=== PATIENT | female | born 1960 | race Caucasian/White ===

== ENCOUNTER 2016-09-05 10:09 | Day surgery (SDC) | payer MEDICARE ==
[~2016-09-05] VITALS: Ht 165.1 cm; Wt 61.3 kg
[~2016-09-05 10:09] MED LIST: AMIT100 PO; B COTAB3 PO; DILA2TAB2 PO; GABA800T PO; LORA-474 PO; MORP30 PO; OXYC10TA8 PO
[2016-09-05 10:36] VITALS: BP 92/73; PULSE 106; RESP 20; TEMP 98; O2SAT 94
[2016-09-05] MEDS ORDERED: MORP1TAB25 PO (10:41)
[2016-09-05] MEDS ORDERED: OXYC-395 PO (10:41)
[2016-09-05] MEDS ORDERED: AMIT1TAB79 PO (10:41)
[2016-09-05] MEDS ORDERED: LORA-474 PO (10:41)
[2016-09-05] MEDS ORDERED: GABA800T PO (10:41)
[2016-09-05] MEDS ORDERED: VITACAP7 PO (10:41)
[2016-09-05] MEDS ORDERED: DILA2TAB2 PO (10:41)
[2016-09-05] MEDS ORDERED: SODIUM CHLORIDE 0.9% 1000 ML IV SCH (11:15)
[2016-09-05] MEDS ORDERED: VANCOMYCIN 1000 MG/NS 250 ML - implanted port/tunneled catheter IV SCH ×2 (11:15)
[2016-09-05] MEDS ORDERED: ceFAZolin 2 GM PREMIX 50 ML - implanted port/tunneled catheter insertion IV SCH (11:15)
[2016-09-05 11:24] LABS: APTT (PATIENT) 29.4 SEC (24.3-30.1); PROTHROMBIN TIME - PATIENT 10.8 SEC (9.8-11.6)
[2016-09-05] MEDS ORDERED: MIDAZOLAM HCL 5 MG/5 ML VIAL ONE (12:22)
[2016-09-05] MEDS ORDERED: fentaNYL CITRATE 250 MCG/5 ML AMP ONE (12:22)
[2016-09-05] MEDS ORDERED: LIDOCAINE 1%/EPINEPHrine 1:100,000 SOLN 20 ML VIAL ONE (12:39)
[2016-09-05 13:40] VITALS: BP 98/52; PULSE 68; RESP 16; TEMP 98; O2SAT 98
[2016-09-05] MEDS ORDERED: IOHEXOL 350 MG/ML 50 ML BTL (for RAD DIAG) IV ONE (13:44)
[2016-09-05 13:55] VITALS: BP 104/58; PULSE 53; RESP 18; O2SAT 94
--- NOTE | 2016-09-05 14:10 | PD.RAD ---
Post Procedure Progress Note Pre Procedure Diagnosis: (1) Breast CA Post Procedure Diagnosis: (1) Breast CA Procedure Date: Sep 05, 2016 Supervising Radiologist: Christiano Chin Proceduralist/Assist: RT Catrachita(R)() Anesthesia: Local, Conscious Sedation Plan of Activity Patient to Unit: [facility] Patient Condition: Good See PACS Report for procedural detail/treatment Central Venous Access Device Procedure 1 Right Internal Jugular Infusaport Removal Christiano Chin MD Sep 05, 2016 14:10
[2016-09-05 14:15] VITALS: BP 106/74; PULSE 98; RESP 18; O2SAT 95
[2016-09-05 14:25] VITALS: BP 108/74; PULSE 53; PULSE 94; RESP 18; O2SAT 95
--- NOTE | 2016-09-05 16:12 | RADRPT ---
EXAM DATE/TIME: 09/05/2016 00:00 [facility] COMPARISON: No previous studies available for comparison. INDICATIONS : <<Patient with history of metastatic breast cancer in need of evaluation of right port with removal f or suspected infection MEDICAL HISTORY : <<1.Metastatic breast cancer 2.Peripheral neuropathy 3.Hypothyroidism >> SURGICAL HISTORY : Port placement ENCOUNTER: Initial ACUITY: > 1 year PAIN SCORE: 0/10 SEDATION TIME: <<30>> minutes 1.) <<3>> mg midazolam (Versed) IV 2.) <<150>> mcg fentanyl (Sublimaze) IV Prophylactic antibiotics were administered with appropriate pre-procedure timing. Vancomycin within 2 hrs of procedure, Ancef (or alternative) within 1 hr of procedure. PROCEDURE : 1. Removal of Zwffpk-t-[id number]. 2. Conscious sedation with continuous EKG and oximetry monitoring. The risk, benefits and potential complications of Nhwchc-b-Cwbf removal were discussed. Written conse nt was obtained. The patient was placed supine. The chest wall was prepped in sterile fashion. Full sterile techniqu e was used, including cap, mask, sterile gloves and gown, and a large sterile sheet. Hand hygiene an d 2% chlorhexidine and/or Betadine/alcohol prep was utilized per protocol for cutaneous antisepsis. The skin and subcutaneous tissues were infiltrated with local anesthetic solution. A small incision w as made, the subcutaneous pocket was opened. The port was dissected from the subcutaneous tissues and easily removed in one piece. The pocket incision was closed with subcuticular Vicryl suture. Steri -Strips were applied. Conscious sedation was performed with the prescribed dosages and duration as above in the presence of an independent trained radiology nurse to assist in the monitoring of the patient. EKG and oximetry remained stable throughout the procedure. The patient tolerated the procedure well and there were no complications. The patient was sent to post anesthesia recovery in stable condition. CONCLUSION: Uncomplicated port removal as above. A blood culture sample was sent from the port prior to removal and the port and catheter tubing were sent for culture evaluation as well. Christiano Chin MD on September 05, 2016 at 16:09 Board Certified Radiologist. This report was verified electronically.
--- NOTE | 2016-09-05 16:17 | RADRPT ---
EXAM DATE/TIME: 09/05/2016 13:33 [facility] COMPARISON: No previous studies available for comparison. INDICATIONS : Patient with history of metastatic breast cancer in need of evaluation of right port with possible re moval. MEDICAL HISTORY : 1.Metastatic breast cancer 2.Peripheral neuropathy 3.Hypothyroidism SURGICAL HISTORY : 1.Right lumpectomy 2.Multiple endometriosis surgeries 3.Back surgery 4.Rotator cuff repair ENCOUNTER: Initial ACUITY: > 1 year PAIN SCORE: 0/10 FLUORO TIME: 0.6 minutes IMAGE SERIES: 2 CONTRAST: 6 cc Omnipaque (iohexol) 350 MEDICATION(S): 1.) 3 mg midazolam (Versed) IV 2.) 150 mcg fentanyl (Sublimaze) IV PROCEDURE : 1. Access of Tfdcyu-c-ddkf. 2. Port patency injection. The risks, benefits and alternatives to the procedure were explained and verbal and written consent w as obtained. The patient was placed supine. The port was prepped in sterile fashion. Full sterile t echnique was used, including cap, mask, sterile gloves and gown, and a large sterile sheet. Hand hyg iene and 2% chlorhexidine prep was utilized per protocol for cutaneous antisepsis with appropriate dr y time for site. The previously placed port was accessed and positive contrast was injected for evaluation. Injection demonstrates no evidence of leak of contrast from the port reservoir or catheter tubing. The cathete r is in good position with tip in the upper right atrium with free spill of injected contrast. No def inite evidence of distal fibrin sheath formation. In conjunction with port removal, a pullback venogr am was performed. Injection from the level of the innominate vein did reveal a fibrin sheath which wo uld've encompassed the proximal intravascular portion of the catheter, above the level of the superio r vena cava. There is spill of injected contrast out of the fibrin sheath into the superior vena cava which appears widely patent. The port was removed intact. See that separate report for further detai ls. CONCLUSION: Satisfactory port catheter evaluation. A short length fibrin sheath was noted incidentally during rem oval of the port. This would not have affected function or accounted for the patient's symptoms. Christiano Chin MD on September 05, 2016 at 16:10 Board Certified Radiologist. This report was verified electronically.
== END 2016-09-05 15:47 | disposition home or self-care (01) ==
LOC: HROP 10:09 → HRIP 10:15 → HROP 15:47
PROVIDERS: ATTEND Internal Medicine Hematology
DX: Z45.2 Encounter for adjustment and management of vascular access device (principal); C50.919 Malignant neoplasm of unspecified site of unspecified female breast; D70.1 Agranulocytosis secondary to cancer chemotherapy; G62.9 Polyneuropathy, unspecified; E03.9 Hypothyroidism, unspecified
CPT/HCPCS: 36590; 36598; 85610; 85730; 87040; 87071; 99152; 99153; J0690; J2250; J3010; J3370; J7030; J7050; Q9967

== ENCOUNTER 2016-09-13 10:16 | Day surgery (SDC) | payer MEDICARE ==
[~2016-09-13 10:16] MED LIST changes: +AMIT1TAB79 PO; +MORP1TAB25 PO; +OXYC-395 PO; +VITACAP7 PO
[2016-09-13 10:33] VITALS: BP 91/70; PULSE 95; RESP 20; TEMP 98.2; O2SAT 100
== END 2016-09-13 10:40 | disposition home or self-care (01) ==
LOC: HROP 10:16 → HRIP 10:23 → HROP 10:40
PROVIDERS: ATTEND Radiology Body Imaging
DX: Z48.02 Encounter for removal of sutures (principal)

== ENCOUNTER 2016-09-21 06:50 | Day surgery (SDC) | payer MEDICARE ==
[~2016-09-21] VITALS: Ht 165.1 cm; Wt 61.4 kg
[2016-09-21] MEDS ORDERED: SODIUM CHLORIDE 0.9% 1000 ML IV SCH (07:00)
[2016-09-21 07:11] VITALS: BP 93/66; PULSE 118; RESP 20; TEMP 97.8; O2SAT 96
[2016-09-21] MEDS ORDERED: POVIDONE IODINE 5% (ANTISEPSIS KIT) 4 APPLICATIONS EACH NARE SCH (07:30)
[2016-09-21] MEDS ORDERED: CHLORHEXIDINE GLUCONATE 2 % 1 PACK (2 CLOTHS) TOPICAL SCH (07:30)
[2016-09-21] MEDS ORDERED: ceFAZolin 2 GM PREMIX 50 ML - implanted port/tunneled catheter insertion IV SCH (07:30)
[2016-09-21] MEDS ORDERED: VANCOMYCIN 1000 MG/NS 250 ML - implanted port/tunneled catheter IV SCH ×2 (07:30)
[2016-09-21 08:24] LABS: AUTOMATED NEUTROPHIL # 4.7 TH/MM3 (1.8-7.7); BASOPHIL % 0.6 % (0.0-2.0); EOSINOPHIL # 0.1 TH/MM3 (0-0.4); EOSINOPHIL % 1.4 % (0.0-4.0); HEMATOCRIT 36.3 % (35.0-46.0); HEMO FLAGS DIFF FINAL; LYMPH % 15.9 % (9.0-44.0); MEAN CELL VOLUME 96.3 FL (80.0-100.0); MEAN CORPUSCULAR HGB CONC 33.3 % (32.0-36.0); MONO % 10.2 % (0.0-8.0); NEUT % 71.9 % (16.0-70.0); PLATELET COUNT 186 TH/MM3 (150-450); RED BLOOD COUNT 3.77 MIL/MM3 (4.00-5.30); RED CELL DISTRIBUTION WIDTH 14.9 % (11.6-17.2); WHITE BLOOD COUNT 6.6 TH/MM3 (4.0-11.0)
[2016-09-21] MEDS ORDERED: MIDAZOLAM HCL 2 MG/2 ML VIAL ONE (08:53)
[2016-09-21] MEDS ORDERED: LIDOCAINE 1%/EPINEPHrine 1:100,000 SOLN 20 ML VIAL ONE (09:01)
[2016-09-21 10:05] VITALS: BP 103/68; PULSE 98; RESP 16; TEMP 97.6; O2SAT 92
[2016-09-21 10:20] VITALS: BP 92/65; PULSE 95; RESP 16; O2SAT 94
[2016-09-21 10:45] VITALS: BP 87/65; PULSE 93; RESP 16; O2SAT 95
--- NOTE | 2016-09-21 10:53 | PD.RAD ---
Post Procedure Progress Note Pre Procedure Diagnosis: (1) Breast CA Post Procedure Diagnosis: (1) Breast CA Procedure Date: Sep 21, 2016 Supervising Radiologist: Ryan Sawyer Proceduralist/Assist: Susan Huang RT(R), RT Mandy(R)() Anesthesia: Local, Analgesia, Conscious Sedation Plan of Activity Patient to Unit: R[facility]U Patient Condition: Good See PACS Report for procedural detail/treatment Central Venous Access Device Procedure 1 Left Internal Jugular Infusaport Placement single lumen [place]: 8 Ryan Sawyer MD Sep 21, 2016 10:53
[2016-09-21 11:00] VITALS: BP 89/66; PULSE 95; RESP 16; O2SAT 95
[2016-09-21] MEDS ORDERED: SODIUM CHLORIDE 0.9% FLUSH 10 ML FLUSH IVF PRN (11:00)
--- NOTE | 2016-09-21 14:09 | RADRPT ---
EXAM DATE/TIME: 09/21/2016 09:11 [facility] COMPARISON: No previous studies available for comparison. INDICATIONS : Patient with history of breast cancer in need of port placement. MEDICAL HISTORY : 1.Herniated disc 2.Endometriosis 3.Right breast 4.Hypothyroid 5.Peripheral neuropathy SURGICAL HISTORY : 1.Partial hysterectomy 2.Rotator cuff ENCOUNTER: Subsequent ACUITY: 3 weeks PAIN SCORE: 0/10 FLUORO TIME: 0.7 minutes IMAGE SERIES: 1 SEDATION TIME: 15 minutes ACCESS: Left internal jugular vein SEDATION: 1.) 0.5 mg midazolam (Versed) IV 2.) 25 mcg fentanyl (Sublimaze) IV Prophylactic antibiotics were administered with appropriate pre-procedure timing. Vancomycin within 2 hours of procedure, Ancef (or alternative) within 1 hour of procedure. DEVICE: 1. 8 [place] single lumen Bard Power Port PROCEDURE : 1. Continuous pulse oximetry and EKG monitoring. 2. Intravenous conscious sedation. 3. Ultrasound guidance for venous access. 4. Fluoroscopic guided implantable central venous port placement. The patient was placed supine. The neck was prepped in sterile fashion. Full sterile technique was u sed, including cap, mask, sterile gloves and gown, and a large sterile sheet. Hand hygiene and 2% ch lorhexidine Betadine was utilized per protocol for cutaneous antisepsis with appropriate dry time for site. The skin and subcutaneous tissues were infiltrated with local anesthetic solution. Under direct ultrasound guidance, central venous access was accomplished in the targeted vessel. The ultrasound images depicting access guidance were stored and saved to PACS for permanent record. A s ubcutaneous pocket was created using blunt dissection. The port was introduced to the pocket. The c atheter tubing was fed through a subcutaneous tunnel to the venotomy site. The catheter tubing was c ut to a suitable length and then was introduced through a valved Peel-Away sheath and positioned with catheter tubing tip at the cavo-atrial junction level. The pocket incision was closed with subcutic ular Vicryl suture. Steri-Strips were applied. The port was flushed and locked with heparin solutio n per protocol. Sterile dressing was applied to the site. The patient tolerated the procedure well. Conscious sedation was performed with the prescribed dosages and duration as above in the presence of an independent trained radiology nurse to assist in the monitoring of the patient. EKG and oximetry remained stable throughout the procedure. The patient tolerated the procedure well and there were no complications. The patient was sent to post anesthesia recovery in stable condition. CONCLUSION: Uncomplicated ultrasound and fluoroscopic guided implanted central venous port catheter placement as described in detail above. An 8 [place] Power port was placed. Ryan Sawyer MD on September 21, 2016 at 14:07 Board Certified Radiologist. This report was verified electronically.
== END 2016-09-21 12:00 | disposition home or self-care (01) ==
LOC: HROP 06:50 → HRIP 06:58 → HROP 12:00
PROVIDERS: ATTEND Internal Medicine Hematology
DX: Z45.2 Encounter for adjustment and management of vascular access device (principal); C50.919 Malignant neoplasm of unspecified site of unspecified female breast; E03.9 Hypothyroidism, unspecified; G62.9 Polyneuropathy, unspecified
CPT/HCPCS: 36561; 76937; 77001; 85025; 99152; C1769; C1788; J0690; J1642; J2250; J3010; J3370; J7030; J7050